=== PATIENT | female | born 1995 | race Caucasian/White ===

== ENCOUNTER 2019-12-02 19:49 | Emergency (ER) | payer OTHER ==
[~2019-12-02 19:49] MED LIST: Iopamidol-370 76% 500 ML 1 ML ONE
[2019-12-02] MEDS ORDERED: Ondansetron PF 4 MG/2 ML Vial ONE (20:51)
[2019-12-02] MEDS ORDERED: Morphine 4 MG/ML VIAL ONE ×2 (20:51→21:49)
[2019-12-02 21:04] LABS: #Basophils 0.1 thou/uL (0.0-0.2); #Eosinphils 0.1 thou/uL (0.0-0.7); #Monocytes 0.9 thou/uL (0.11-0.59); #Neutrophils 5.4 thou/uL (1.40-6.50); %Basophils 0.9 % (0.0-1.0); %Eosinophils 0.6 % (0.0-10.0); %Lymphocytes 38.1 % (21.0-51.0); %Neutrophils 51.5 % (42.0-75.0); Hemoglobin 14.5 g/dL (12.0-16.0); Mean Corpuscular HGB CONC 33.2 g/dL (32.0-36.0); Mean Corpuscular Hemoglobin 30.8 pg (27.0-31.0); Mean Corpuscular Volume 92.7 fL (78.0-98.0); Platelet Count 222 thou/uL (130-400); RBC Distribution Width 12.8 % (11.5-14.5); White Blood Cell (WBC) Count 10.4 thou/uL (4.8-10.8)
[2019-12-02 21:17] LABS: BHCG - Serum Negative (NEGATIVE); Pregs Control Background? CLEAR/WHITE (CLR/WHITE); Pregs Control Bar Appear? YES (CONTROL BAR)
[2019-12-02 21:27] LABS: ALT (SGPT) 8 U/L (8-55); AST (SGOT) 14 U/L (5-34); Albumin 4.8 g/dL (3.5-5.0); Alkaline Phosphatase 25 U/L (40-110); Anion Gap 12 mmol/L (10-20); BUN (Urea Nitrogen) 10 mg/dL (7.0-18.7); Bilirubin, Total 0.7 mg/dL (0.2-1.2); Calc. Creatinine Clearance 0 mL/min (70-130); Calcium 9.4 mg/dL (7.8-10.44); Carbon Dioxide 26 mmol/L (22-29); Chloride 104 mmol/L (98-107); Estimated GFR-MDRD Greater than 90; Globulin 3.1 g/dL (2.4-3.5); Glucose 76 mg/dL (70-105); Lipase 12 U/L (8-78); Potassium 3.5 mmol/L (3.5-5.1); Protein, Total 7.9 g/dL (6.0-8.3); Sodium 138 mmol/L (136-145)
[2019-12-02] MEDS ORDERED: HYDROcodone/Acetaminophen 10/325 mg Tablet ONE (23:24)
--- NOTE | 2019-12-03 07:47 | CT ---
PRELIMINARY REPORT/DIRECT RADIOLOGY/EMERGENCY AFTER HOURS PROCEDURE EXAM: CTA Abdomen with and without Intravenous Contrast. CLINICAL HISTORY: Patient presents complaining of pain in her right shoulder. She said it hurts worse if she eats a deep breath. She thinks is referred pain from her gallbladder. It has been all day tod ay. Getting progressively worse. She works in this hospital. She was going to try to go home and then got much worse so she came back. She feels short of breath just because it hurts to take a deep juan th. She is not had a cough. No chest pain. No fever. No hemoptysis. No vomiting or diarrhea. No dysur ia. She has a Mirena IUD. No personal or family history of DVT or PE. No leg swelling. No recent proc edures. She has a history of a focal nodular hyperdensity in her liver, she had biopsy about a year a go for that. She does not have a GI doctor locally. Her right shoulder does not hurt with range of mo tion. TECHNIQUE: Axial CTA images of the abdomen performed with and without intravenous contrast. Three-dim ensional MIP/volume rendered formations were performed. CONTRAST: With and without; ISOVUE 370,100mL COMPARISON: None provided. FINDINGS: VASCULATURE: Aorta: No acute finding. No abdominal aortic aneurysm. No dissection. Celiac trunk: No acute finding. No occlusion or significant stenosis. Superior mesenteric artery: No acute finding. No occlusion or significant stenosis. Inferior mesenteric artery: No acute finding. No occlusion or significant stenosis. Renal arteries: No acute finding. No occlusion or significant stenosis. Lower thorax: No basilar airspace consolidation. ABDOMEN: Liver: The liver is enlarged measuring 18.9 cm in length. A round enhancing lesion is seen in the ri ght lobe of the liver with a central hypoenhancing nidus measuring 3.4 x 3.4 cm. Round, lobular enha ncing lesion in the right lobe of liver measuring 3.6 x 3.4 cm, series 4 image 20. Gallbladder and bile ducts: No calcified stone. No ductal dilation. Pancreas: Unremarkable. No ductal dilation. Spleen: Unremarkable. Adrenals: No mass. Kidneys and ureters: The kidneys enhance symmetrically. No hydronephrosis. No solid mass. Stomach and bowel: No obstruction. No bowel wall thickening. No CT evidence of acute diverticulitis. Peritoneum: No free fluid. No free air. Lymph nodes: No lymphadenopathy. Abdominal wall and soft tissues: Unremarkable. Bones: No acute osseous abnormality. IMPRESSION: No acute finding. No occlusion or hemodynamically significant stenosis of the arterial sy stem of the abdomen. No AAA. No aortic dissection. The round enhancing lesion in the right lobe of th e liver with a central hypoenhancing nidus is most consistent with focal nodular hyperplasia. The ro und lobular hyperenhancing lesion in the right lobe of the liver may represent focal nodular hyperpla yuli or a hepatic adenoma. Other etiologies are not excluded. Follow-up with MRI is recommended. ELECTRONICALLY SIGNED BY: Richie Meza MD Dec 03, 2019 12:27:12 AM CDT FINAL REPORT No definite acute aortic stenosis, occlusion or aneurysmal formation is seen within the abdomen. The celiac, SMA, and renal arteries appear patent. The ROSALIA is patent. The visualized common iliac ronny blas are patent. As described in the preliminary report are hyperenhancing rounded lesions involving the right hepatic lobe seen on a recent right upper quadrant ultrasound as being slightly hyperechoi c. These would suggest either small hepatic adenomas or hemangiomas. Would recommend consideration for MRI of the abdomen with and without contrast utilizing hemangioma protocol for further characteri zation. There are some reticulonodular opacities within the peripheral aspect of the posterolateral right low er lobe suspicious for a mild bronchiolitis. No free fluid or enlarged lymph nodes are seen within the abdomen. Visualized unopacified large and small bowel are unremarkable-appearing. POS:
--- NOTE | 2019-12-03 10:47 | ULT ---
GALLBLADDER ULTRASOUND: HISTORY: Right upper quadrant pain. FINDINGS: Real-time imaging of the right upper quadrant shows a normal-appearing gallbladder. The common duct is 3 mm. Within the right lobe of the liver are 2 somewhat indistinct hyperechoic lesions, one measuring appro ximately 3.3 cm in size, the other approximately 2.5 x 4.4 cm. In a patient of this age group, these are most likely hemangiomas, but not entirely typical in appearance. Further evaluation with CT usi ng a liver mass protocol would be recommended on a nonemergent basis. Right kidney is not obstructed . Pancreas appears unremarkable. IMPRESSION: Two hyperechoic areas within the right lobe of the liver. Given the patient's age, these are probabl y benign liver lesions, but further characterization with CT using liver mass protocol on a nonemerge ncy basis would be recommended. POS: [facility]
== END 2019-12-03 02:00 | disposition home or self-care (01) ==
LOC: ERS 19:49
DX: M25.511 Pain in right shoulder (principal); K76.89 Other specified diseases of liver
CPT/HCPCS: 74175; 76705; 80053; 83690; 84703; 85025; J2270; J2405; Q9967

== ENCOUNTER 2019-12-03 09:39 | Inpatient (IN) | payer OTHER ==
[2019-12-03 10:13] LABS: #Basophils 0.2 thou/uL (0.0-0.2); #Eosinphils 0.1 thou/uL (0.0-0.7); #Lymphocytes 2.9 thou/uL (1.20-3.40); #Monocytes 0.8 thou/uL (0.11-0.59); #Neutrophils 3.4 thou/uL (1.40-6.50); %Basophils 2.1 % (0.0-1.0); %Eosinophils 1.1 % (0.0-10.0); %Lymphocytes 39.3 % (21.0-51.0); %Monocytes 11.1 % (0.0-10.0); %Neutrophils 46.5 % (42.0-75.0); Hemoglobin 14.4 g/dL (12.0-16.0); Mean Corpuscular HGB CONC 32.7 g/dL (32.0-36.0); Mean Corpuscular Hemoglobin 30.8 pg (27.0-31.0); Mean Corpuscular Volume 94.3 fL (78.0-98.0); Platelet Count 189 thou/uL (130-400); RBC Distribution Width 12.8 % (11.5-14.5); Red Blood Cell (RBC) Count 4.68 mill/uL (4.20-5.40); White Blood Cell (WBC) Count 7.4 thou/uL (4.8-10.8)
[2019-12-03 10:19] LABS: BHCG - Serum Negative (NEGATIVE); Pregs Control Background? CLEAR/WHITE (CLR/WHITE); Pregs Control Bar Appear? YES (CONTROL BAR)
[2019-12-03] MEDS ORDERED: Morphine 4 MG/ML VIAL ONE (10:29)
[2019-12-03 10:32] LABS: ALT (SGPT) 8 U/L (8-55); AST (SGOT) 15 U/L (5-34); Albumin 4.6 g/dL (3.5-5.0); Alkaline Phosphatase 26 U/L (40-110); Anion Gap 11 mmol/L (10-20); BUN (Urea Nitrogen) 8 mg/dL (7.0-18.7); Bilirubin, Total 0.8 mg/dL (0.2-1.2); Calc. Creatinine Clearance 0 mL/min (70-130); Calcium 9.3 mg/dL (7.8-10.44); Carbon Dioxide 26 mmol/L (22-29); Chloride 105 mmol/L (98-107); Estimated GFR-MDRD Greater than 90; Globulin 3.1 g/dL (2.4-3.5); Glucose 78 mg/dL (70-105); Lipase 238 U/L (8-78); Potassium 3.6 mmol/L (3.5-5.1); Protein, Total 7.7 g/dL (6.0-8.3); Sodium 138 mmol/L (136-145)
[2019-12-03] MEDS ORDERED: Acetaminophen 325 MG TAB PO PRN (11:28)
[2019-12-03] MEDS ORDERED: Ondansetron ODT 4 MG TAB PO PRN (11:28)
[2019-12-03] MEDS ORDERED: Calcium Carbonate 500 MG ChewTAB PO PRN (11:28)
[2019-12-03 12:15] LABS: Magnesium 2.1 mg/dL (1.6-2.6); Phosphorus 4.3 mg/dL (2.3-4.7)
[2019-12-03 12:57] VITALS: BMI 20.7
[2019-12-03] MEDS: D5 1/2 NS w/20 mEq KCL 1,000 ML IV SCH ×2 (14:10→22:03)
[2019-12-03] MEDS: Morphine 2 MG/ML SYRINGE SLOW IVP PRN (14:10)
[2019-12-03] MEDS ORDERED: Ketorolac Tromethamine 30 MG/ML VIAL IVP PRN (17:37)
--- NOTE | 2019-12-03 18:52 | HP ---
PRIMARY CARE PHYSICIAN: City Axel. CHIEF COMPLAINT: Abdominal discomfort. HISTORY OF PRESENT ILLNESS: The patient is a 24-year-old female with focal nodular hyperplasia of the liver, presented to the emergency room with above complaints. Over the last 24 hours, the patient developed gradual worsening pain in the right upper quadrant radiating to her right shoulder. The pain is moderate to severe in intensity, worse with deep breathing and movement. She felt nauseous, however, denies any vomiting. No urinary symptoms reported. She was evaluated in the emergency room last night and was discharged home on Tylenol No. 3. The pain got worse this morning, for which she presented to the emergency room. She denies any worsening of the pain with right shoulder movement. The patient denies any other complaints. PAST MEDICAL HISTORY: 1. Von Willebrand disease, type 1. 2. Focal nodular hyperplasia of the liver. 3. Fibromyalgia. PAST SURGICAL HISTORY: 1. Septoplasty. 2. [place] teeth extraction. ALLERGIES: THE PATIENT IS ALLERGIC TO AUGMENTIN AND SULFA. CURRENT HOME MEDICATION: Tylenol No. 3. REVIEW OF SYSTEMS: All other review of systems is reviewed and found negative. SOCIAL HISTORY: The patient currently lives at home alone. Denies any smoking or alcohol. 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 FAMILY HISTORY: Negative for heart disease. PHYSICAL EXAMINATION: VITAL SIGNS: Temperature 98.7, respirations of 20, pulse rate of 82, blood pressure of 130/81, O2 saturation 99% on room air. GENERAL: A 24-year-old female in mild to moderate distress due to above complaints. HEENT: Head, atraumatic and normocephalic. Sclerae are anicteric. Moist mucous membranes. No oral lesion. NECK: Supple. No JVD. No carotid bruit. LUNGS: Clear to auscultation bilaterally. No wheezing, rales, or rhonchi. HEART: S1 and S2 present. Regular rate and rhythm. No rubs or gallops. ABDOMEN: Soft. There is tenderness in the right upper quadrant. No rebound or guarding. No costovertebral angle tenderness. EXTREMITIES: No edema or calf tenderness. NEUROLOGIC: Grossly nonfocal. Moves all 4 extremities. PSYCHIATRY: Alert, awake, oriented x3. SKIN: Warm and dry. LYMPH NODES: No palpable lymph nodes in the neck. LABORATORY FINDINGS: CBC showed WBC 7.4 with hemoglobin 14.4, hematocrit 44.1, platelet 189. Chemistry showed sodium 138, potassium 3.6, chloride of 105, bicarb 26, BUN 8, creatinine 0.76. test was negative. Lipase was 238 from 12 last night. TSH was normal. CT angiogram of the abdomen with and without contrast showed right lower lobe liver lesion consistent with adenomas or hemangiomas. It also showed some reticular nodular opacities within the peripheral aspect of the posterolateral right lower lobe suspicious for mild bronchiolitis. IMPRESSION: 1. Right upper quadrant pain radiating to the shoulder, multifactorial. 2. Elevated lipase with suspected acute pancreatitis. 3. Probable acute bronchiolitis. 4. History of von Willebrand disease, type 1. 5. History of focal nodular hyperplasia. PLAN: The patient will be kept n.p.o. for possible pancreatitis. She has mild nausea. We will start her on IV hydration with PPIs. We will add anti- inflammatory agent with morphine. We will consult Gastroenterology Service. We will recheck labs including lipase in a.m. The patient had a COVID testing recently which has been negative. Her symptoms are not consistent with viral syndrome. Job ID: [id number] [facility]
[2019-12-03] MEDS: Ondansetron PF 4 MG/2 ML Vial IVP PRN (19:05)
[2019-12-03] MEDS: HYDROcodone/Acetaminophen 5/325 mg Tablet PO PRN (19:39)
[2019-12-03] MEDS: Pantoprazole 40 MG VIAL IVP SCH (20:25)
--- NOTE | 2019-12-03 21:43 | CON ---
DATE OF CONSULTATION: 12/03/2019 CHIEF COMPLAINT: Severe right shoulder pain and right posterior flank pain. 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 She reports 3 days ago she noted onset of intermittent stabbing pain involving the right shoulder. There was no hindrance to shoulder movement or range of motion. She denies any trauma or heavy physical exertion. Later that day, she felt pain that radiates from the right lower chest and also in the right flank that radiates up to the right shoulder. She denies any fever or chills. There is no respiratory symptoms such as shortness of breath or coughing. The patient presented to the ER where she underwent an abdominal ultrasound that showed 2 hyperechoic areas in the right lobe of the liver with a normal gallbladder and common duct measured 3 mm. All her labs including liver profile were normal. The patient was discharged home with pain medication. However, the right shoulder pain became more prominent and more persistent. It soon became apparent that every time she takes a deep breath or cough that she would have pain that radiates from the right posterior flank, shooting straight up to her right shoulder. In addition, any twisting of her torso also reproduced the pain from the right posterior flank to the right shoulder. The patient presented back to the ER. CT angiogram performed showed the 2 liver lesions without any other abnormality. The patient denies having any nausea or vomiting. She has no altered bowel function. She denies any fever or chills. She specifically denies having any frontal abdominal pain. The patient has known focal nodular hyperplasia in the liver with extensive evaluation at [facility] 2 years ago. She reportedly had multiple MRIs. She also had an attempted liver biopsy that was inconclusive. She also reports having a family history of gallbladder disease involving her mom and her aunt. PAST MEDICAL HISTORY: 1. Von Willebrand's disease. 2. Focal nodular hyperplasia in the liver. 3. Fibromyalgia. 4. Status post septoplasty. 5. Status post wisdom tooth removal. SOCIAL HISTORY: Patient lives by herself. She infrequently consumes alcohol socially. Denies any tobacco usage or recreational drug use. FAMILY HISTORY: Gallbladder disease, not involving gallstones in her mother. Otherwise negative for any known GI problem, liver disease, or GI malignancy. MEDICATION: Usual medication at home; none. ALLERGIES: INCLUDE AMOXICILLIN/ CLAVULANIC ACID AND SULFA. REVIEW OF SYSTEMS: Ten-point review of systems did not show any reported symptoms other than aforementioned. PHYSICAL EXAMINATION: VITAL SIGNS: Temperature 97.6, blood pressure 92/51, pulse of 76. GENERAL: She is alert, conversant, in no distress. HEENT: Shows anicteric sclerae. Oropharynx is clear and moist. NECK: Supple. No adenopathy. CV: Exam shows normal S1, S2. Regular rate and rhythm. CHEST: Shows breath sounds. There is no chest wall tenderness. Right shoulder rotation is normal without any restriction of pain. ABDOMEN: Soft, flat, nontender. No distention. No tympany. No palpable mass or organomegaly. There is some vague reproduction of pain with deep palpation in the right costal margin. There is no flank tenderness. SKIN: Does not show any visible rash. EXTREMITIES: Exam shows no edema. LABORATORY DATA: WBC 7.4, hemoglobin 14.4, and platelet count of 189. Next lytes within normal range. Creatinine 0.76, bilirubin 0.8, AST 15, ALT of 8, and alkaline phos is 26, lipase 238 (12 yesterday). IMAGING: Abdominal ultrasound performed yesterday showed 2 hyperechoic areas within the right lobe of liver consistent with her known FNH. Gallbladder appeared normal without any mural thickening or pericholecystic fluid. Common duct is 3 mm. There is no cholelithiasis. CT angiogram. I personally reviewed the CT with the radiologist. Their suggestion is bronchiolitis in the right lower lobe with possible mild effusion. There is no discrete lesion or mass within the lung cavity. Diaphragm is normal without any abscess. Liver is consistent with 2 lesions from known FNH in the right liver. These lesions are not abutting the liver capsule. No evidence of hemorrhage. Right kidney appears normal. Biliary tree appeared normal. Gallbladder appeared normal and the vascular structures including SMA and celiac arteries are normal. ASSESSMENT: 1. Right posterior flank pain, mostly in the back rather than frontal pain with radiation to the right shoulder. Onset is often precipitated by deep breathing or coughing or twisting of the torso. Etiology is not known at this point. There is no objective evidence of any gallbladder disease at the present time or any disease process that elevates her diaphragm. Possibilities at the present time include pleuritis or pleurisy, especially CT finding of peripheral bronchiolitis in the periphery in the right lower lungs versus acalculous gallbladder disease. The patient has no respiratory symptoms, fever or chills. RECOMMENDATION: 1. Agreed with HIDA scan with gallbladder stimulation test as ordered. 2. No indication for GI endoscopy at the present time. 3. If HIDA scan is unremarkable, a repeat CT through the lower thorax and upper abdomen may be warranted to assess for any interval change. 4. We will follow. Job ID: [id number]
[2019-12-04 04:31] LABS: #Basophils 0.1 thou/uL (0.0-0.2); #Eosinphils 0.1 thou/uL (0.0-0.7); #Lymphocytes 2.6 thou/uL (1.20-3.40); #Monocytes 0.7 thou/uL (0.11-0.59); #Neutrophils 2.9 thou/uL (1.40-6.50); %Basophils 0.8 % (0.0-1.0); %Lymphocytes 41.3 % (21.0-51.0); %Monocytes 11.7 % (0.0-10.0); %Neutrophils 45.2 % (42.0-75.0); Hemoglobin 13.1 g/dL (12.0-16.0); Mean Corpuscular HGB CONC 33.5 g/dL (32.0-36.0); Mean Corpuscular Hemoglobin 31.4 pg (27.0-31.0); Mean Platelet Volume 10.2 fL (7.4-10.4); Platelet Count 183 thou/uL (130-400); RBC Distribution Width 12.7 % (11.5-14.5); Red Blood Cell (RBC) Count 4.16 mill/uL (4.20-5.40); White Blood Cell (WBC) Count 6.3 thou/uL (4.8-10.8)
[2019-12-04 04:56] LABS: ALT (SGPT) Less than 7 U/L (8-55); AST (SGOT) 11 U/L (5-34); Albumin 3.7 g/dL (3.5-5.0); Alkaline Phosphatase 21 U/L (40-110); Anion Gap 9 mmol/L (10-20); BUN (Urea Nitrogen) 5 mg/dL (7.0-18.7); Bilirubin, Total 0.8 mg/dL (0.2-1.2); Calc. Creatinine Clearance 112 mL/min (70-130); Calcium 8.7 mg/dL (7.8-10.44); Carbon Dioxide 25 mmol/L (22-29); Chloride 107 mmol/L (98-107); Estimated GFR-MDRD Greater than 90; Globulin 2.6 g/dL (2.4-3.5); Glucose 100 mg/dL (70-105); Lipase 13 U/L (8-78); Protein, Total 6.3 g/dL (6.0-8.3); Sodium 137 mmol/L (136-145)
[2019-12-04] MEDS: Morphine 2 MG/ML SYRINGE SLOW IVP PRN (06:11)
[2019-12-04] MEDS: D5 1/2 NS w/20 mEq KCL 1,000 ML IV SCH ×3 (06:14→19:57)
[2019-12-04] MEDS: HYDROcodone/Acetaminophen 5/325 mg Tablet PO PRN ×3 (07:29→19:58)
[2019-12-04] MEDS: Pantoprazole 40 MG VIAL IVP SCH ×2 (07:33→19:58)
--- NOTE | 2019-12-04 08:46 | PDOC.HOSPP ---
- Subjective Encounter Date: 12/04/19 Encounter Time: 15:30 Subjective: Patient seen and examined for RUQ pain. No improvement in RUQ pain. No new complaints. No overnight events - Objective Vital Signs & Weight: Vital Signs (12 hours) Temp Pulse Resp BP BP Pulse Ox 12/04/19 07:19 98.0 F 71 16 104/55 L 100 12/04/19 05:06 99 12/04/19 04:10 98.4 F 70 16 96/51 L 100 12/03/19 23:57 98.6 F 60 16 96/51 L 99 Weight Weight 136 lb 6.4 oz I&O: 12/03/19 12/04/19 12/05/19 06:59 06:59 06:59 Intake Total 1105 1493 Balance 1105 1493 Result Diagrams: 12/04/19 04:20 12/04/19 04:20 Additional Labs: Laboratory Tests 12/03/19 12/04/19 12/04/19 10:02 04:20 04:20 Lipase 238 H 13 Procalcitonin 0.02 Hospitalist ROS - Review of Systems Constitutional: denies: fever, chills, sweats, weakness, malaise, other Respiratory: denies: cough, dry, shortness of breath, hemoptysis, SOB with excertion, pleuritic pain, sputum, wheezing, other Cardiovascular: denies: chest pain, palpitations, orthopnea, paroxysmal noc. dyspnea, edema, light headedness, other - Medication Medications: Active Medications Generic Name Dose Route Start Last Admin Trade Name Freq PRN Reason Stop Dose Admin Hydrocodone Bitart/Acetaminophen 1 tab 12/03/19 17:37 12/04/19 07:29 Spencer 5/325 PO 1 tab Q4H PRN Administration Moderate Pain (4-6) Potassium Chloride/Dextrose/Sod Cl 1,000 mls @ 125 mls/hr 12/03/19 11:30 06:14 D5 1/2 Ns W/20 Meq Kcl IV 1,000 mls .Q8H [place] Administration Ketorolac Tromethamine 15 mg 12/03/19 17:37 12/03/19 19:03 Toradol IVP 12/08/19 17:38 15 mg Q6H PRN Administration Pain Morphine Sulfate 2 mg 12/03/19 13:26 12/04/19 06:11 Morphine SLOW IVP 12/06/19 13:27 2 mg Q4H PRN Administration Pain Ondansetron HCl 4 mg 12/03/19 11:28 12/03/19 19:05 Zofran IVP 4 mg Q6H PRN Administration Nausea/Vomiting Pantoprazole Sodium 40 mg 12/03/19 21:00 12/04/19 07:33 Protonix IVP 40 mg Q12HR [place] Administration Sodium Chloride 10 ml 12/03/19 11:28 12/04/19 06:15 Flush - Normal Saline IVF 10 ml PRN PRN Administration Saline Flush - Exam General Appearance: NAD Heart: RRR, no gallops Respiratory: no wheezes, no ronchi Gastrointestinal: soft, non-distended, normal bowel sounds Gastrointestinal - other findings: RUQ tenderness Extremities: no cyanosis, no clubbing Neurological: no new deficit Psychiatric: normal affect, A&O x 3 Hosp A/P - Plan DVT proph w/SCDs 1. Right upper quadrant pain radiating to the shoulder, multifactorial. 2. Elevated lipase with suspected acute pancreatitis. 3. Probable acute bronchiolitis. 4. History of von Willebrand disease, type 1. 5. History of focal nodular hyperplasia. PLAN: LFTs/Lipase improving HIDA scan negative Reduce IVF GI following Cont PPI Pain control SCDs for DVT prophylaxis
--- NOTE | 2019-12-04 14:30 | NM ---
HEPATOBILIARY SCAN: HISTORY:Abdominal pain. No gallstones on ultrasound of 12/02/2019 RADIOPHARMACEUTICAL: 5.5 mCi Technetium 99m Mebrofenin injected intravenously FINDINGS: There is normal tracer extraction by the liver with normal excretion into the biliary tracts and smal l bowel loops and normal filling of the gallbladder. The calculated gallbladder ejection fraction following an oral fatty meal measures 71%. IMPRESSION:Normal exam.
[2019-12-04] MEDS ORDERED: Iopamidol-370 76% 500 ML 1 ML ONE (15:56)
[2019-12-04 16:37] LABS: PTT 33.5 sec (22.9-36.1); Prothrombin Time 13.4 sec (12.0-14.7)
--- NOTE | 2019-12-04 17:28 | PRG ---
DATE OF SERVICE: 12/04/2019 SUBJECTIVE: Ms. Harris still has pain vague on her right upper quadrant, bad in the right shoulder when trying to take a deep breath. She actually has a catch and cannot deep breathe secondary to very sharp pain like a nail going to her right shoulder. She has had no fever or chills. She had a HIDA scan today with the EF of 71% with maybe a little bit of discomfort, but no reproduction of the severe pain. Presently, she is resting comfortably. She denies any nausea or vomiting. She reports that she had a history of fibromyalgia diagnosed at [facility] last year. There she had a CAT scan, EGD, and saw a tin plater with no rheumatologic disease found. She has no cough or shortness of breath. Her CT angio here on review did show some bronchiolitis in the right lower lung. There has been no full chest x-ray or CT of the chest. PHYSICAL EXAMINATION: VITAL SIGNS: Temperature is 98, pulse 71, blood pressure 104/55. LUNGS: Clear, although she cannot take a very deep breath and punches in the right side with severe shoulder pain if she tries to take a deep breath. HEART: Regular rhythm. ABDOMEN: Soft and nontender. There is no rebound. There is no guarding. Bowel sounds are positive. EXTREMITIES: No clubbing, cyanosis, or edema. LABORATORY DATA: White count 6.3, hemoglobin 13, platelet count 183. Electrolytes normal. Liver function tests normal. TSH normal. test negative. Procalcitonin normal. Lipase was 238 on the . It is normal [address] scan was reviewed from admission with Dr. Vargas yesterday with Radiology. ASSESSMENT: Pleuritic like pain with some hiccuping. She has had an upper endoscopy last year. She has a rheumatological evaluation last year at [facility]. RECOMMENDATIONS: I would get a CT of her chest and abdomen and check inflammatory markers. We will ask General Surgery to evaluate even though her HIDA scan was normal. In case her symptoms seem to be worsening over time, this would be unusual for to have a sick gallbladder in the setting as she has no inflammatory markers, elevation of white count or platelet count. No fever. No tachycardia. Gallbladder appeared normal on her CT. I would think that if she is having this much pain referred to her right shoulder from diaphragmatic irritation, it would be something else present and also it would be another possibility if she denies use of NSAIDs. PLAN: CT chest and abdomen today. EGD tomorrow. If negative, surgical consultation may be reasonable to have Pulmonary evaluate this patient as well. Of note, she has no pain with moving her right shoulder. She has a little bit of pain with twisting and moving, but most of the pain is elicited by deep breath. Job ID: [id number]
--- NOTE | 2019-12-04 20:05 | CT ---
CT CHEST WITH IV CONTRAST CT ABDOMEN WITH AND WITHOUT IV CONTRAST (TRIPLE PHASE): 12/04/19 HISTORY: Severe right shoulder pain with hiccups and right upper quadrant pain. COMPARISON: CTA abdomen and CT abdomen with and without contrast from previous day. FINDINGS: No mediastinal, hilar, or axillary mass, or lymphadenopathy seen. No pericardial or left pleural effu sions noted. A small right pleural effusion has developed with adjacent atelectatic change. No pneumo thoraces are seen. No lung masses are identified. The masses in the right lobe of the liver are again seen and these masses are hyperenhancing on the a rterial phase measuring about 3.5 cm superior in the superior mass and about 3.4 cm inferiorly. The inferior mass has a central hypoattenuating scar on the arterial phase. The portal venous phase demon strates isoattenuation of these masses. The noncontrasted images demonstrate no evidence of hemorrhag e or calcification. The spleen, pancreas, adrenal glands and kidneys are normal. No free air, free f luid or lymphadenopathy seen in the abdomen. No acute osseous abnormalities are seen. No osteolytic or osteoblastic lesions are identified. IMPRESSION: 1. Small right pleural effusion with adjacent atelectatic change. 2. Masses in the right lobe of the liver are most likely due to FNH. An MRI with Eovist would be helpful. If not, a follow-up CT scan should be obtained in three months. POS: [facility]
--- NOTE | 2019-12-04 20:43 | CON ---
DATE OF CONSULTATION: 12/04/2019 REASON FOR CONSULTATION: Pleuritic pain in the right side of the chest and intersection with the abdomen radiating towards the right shoulder. HISTORY OF PRESENT ILLNESS: A 24-year-old, who has a history of Von Willebrand disease, which was diagnosed when she was in her teenage years and presented with metromenorrhagia. She has been treated with oral contraceptives, eventually developed hepatic focal nodular hyperplasia, which led to discontinuation of the oral contraceptives and she is using a different modality to decrease the menstrual flow now. 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 Initially, the concern was with her gallbladder, but workup did not reveal any gallbladder inflammatory process or biliary issues. Right now, she is still for the most part appears comfortable at rest, but when she tries to take a deep breath she has this pain, which hits her in the lower anterolateral chest and then radiates to the right shoulder. It is quite intense, but only when she takes a deep breath. She does not have any headaches. No visual symptoms, sore throat, odynophagia, or dysphagia. No cough. No dyspnea. No abdominal pain. No genitourinary symptoms. No bleeding. No diarrhea. No joint symptoms. PAST MEDICAL HISTORY: Von Willebrand disease with metromenorrhagia, managed with initially oral contraceptives. Subsequently, she developed focal nodular hyperplasia in the liver, which was biopsy-proven, that led to discontinuation of oral contraceptives. She has also history of fibromyalgia. She has wisdom teeth removal and septoplasty. SOCIAL HISTORY: She is a nurse. Drinks rarely. Family lives in [place]. She lives by herself with the above. ALLERGIES: AUGMENTIN AND SULFA DRUGS. MEDICATIONS: p.r.n. for cough. FAMILY HISTORY: Von Willebrand disease. PHYSICAL EXAMINATION: VITAL SIGNS: Temperature is normal, blood pressure 111/73, pulse 61, respirations 16, and O2 saturation 98. GENERAL: She appears in no Distress. Only when she takes a deep breath, I think it become symptomatic. There is no lymphadenopathy. HEENT: Not remarkable except for acne. NECK: Supple. LUNGS: With no obvious crackles or wheezing. She has difficulty in taking deep breaths because of the induced pain. HEART: S1 and S2. Regular rate. No S3 or S4. ABDOMEN: Soft, not distended or tender. No ascites. No bladder distention. No joint inflammatory activity. EXTREMITIES: Moves extremities equally. NEUROLOGIC: Nonfocal. LABORATORY DATA: White cell count 7.4 and 6.3, hemoglobin 13, platelets 183, and monocytes 11.7. INR 1.0. Creatinine 0.76. Liver profile normal. The lipase was 233, but then on repeat was 13. TSH normal. Procalcitonin 0.02. CRP was 2.26. The patient had a CT of abdomen CTA, which was done on 12/01 two days ago which showed no definite vascular abnormality around enhancing lesion. The right lobe of liver with a central focal nodular hyperplasia. Some reticulonodular opacities in peripheral aspect posterior lateral right lower lobe. No enlarged lymph nodes noted. A CT of chest was done and this shows a pleural fluid appears to be some areas of loculation, this could be a hemorrhagic pleural fluid. ASSESSMENT: Von Willebrand disease, focal nodular hyperplasia and in pleuritic pain with referring to the right shoulder with abnormalities noted on the CT scan. DISCUSSION: Differential diagnosis includes spontaneous hemorrhagic pleural fluid from associated with Von Willebrand disease as the more likely scenario is probably causing the referred pain in the right shoulder, so I do not think this is secondary to an infectious process, but probably related to her Von Willebrand disease. We will wait for the final interpretation of the radiologist. Gallbladder disease has been effectively ruled out. Viral pleurodynia is less likely due to absence of other symptoms or fever. Thromboembolism also appears less likely but not yet ruled out. Job ID: [id number] [facility]
[2019-12-05] MEDS: HYDROcodone/Acetaminophen 5/325 mg Tablet PO PRN ×5 (00:07→20:50)
[2019-12-05 04:04] LABS: Hemoglobin 13.6 g/dL (12.0-16.0); Lymphocytes 35 % (21-51); MDiff Complete? YES; Mean Corpuscular HGB CONC 33.1 g/dL (32.0-36.0); Mean Corpuscular Volume 93.5 fL (78.0-98.0); Mean Platelet Volume 10.1 fL (7.4-10.4); Monocytes 13 % (0-10); Neutrophil 52 % (42-75); Platelet Count 200 thou/uL (130-400); Platelet Morphology Comment Appears Adequate; RBC Distribution Width 12.8 % (11.5-14.5); Red Blood Cell (RBC) Count 4.38 mill/uL (4.20-5.40); White Blood Cell (WBC) Count 7.4 thou/uL (4.8-10.8)
[2019-12-05 04:21] LABS: ALT (SGPT) Less than 7 U/L (8-55); AST (SGOT) 12 U/L (5-34); Alkaline Phosphatase 22 U/L (40-110); Anion Gap 12 mmol/L (10-20); BUN (Urea Nitrogen) 6 mg/dL (7.0-18.7); Bilirubin, Total 0.6 mg/dL (0.2-1.2); Calc. Creatinine Clearance 110 mL/min (70-130); Carbon Dioxide 24 mmol/L (22-29); Chloride 105 mmol/L (98-107); Estimated GFR-MDRD Greater than 90; Globulin 2.8 g/dL (2.4-3.5); Glucose 90 mg/dL (70-105); Potassium 4.3 mmol/L (3.5-5.1); Protein, Total 6.8 g/dL (6.0-8.3); Sodium 137 mmol/L (136-145)
[2019-12-05] MEDS: Morphine 2 MG/ML SYRINGE SLOW IVP PRN ×3 (05:39→14:11)
[2019-12-05] MEDS ORDERED: Morphine 2 MG/ML SYRINGE SLOW IVP SCH (06:00)
[2019-12-05] MEDS: Ondansetron PF 4 MG/2 ML Vial IVP PRN (07:32)
[2019-12-05] MEDS: Pantoprazole 40 MG VIAL IVP SCH ×2 (07:32→20:35)
--- NOTE | 2019-12-05 07:53 | RAD ---
EXAM: Chest 2 views: HISTORY: Shortness of breath COMPARISON: 04/18/2014 FINDINGS: There is a normal-sized cardiomediastinal silhouette. There is no evidence of consolidation, mass, or pleural effusion. There is mild scoliotic curvature of the spine. IMPRESSION: No evidence of acute cardiopulmonary disease
--- NOTE | 2019-12-05 08:37 | PDOC.HOSPP ---
- Objective Vital Signs & Weight: Vital Signs (12 hours) Temp Pulse Resp BP Pulse Ox 12/05/19 08:00 97.8 F 75 15 100/59 L 100 12/05/19 00:20 100 Weight Weight 136 lb 6.4 oz I&O: 12/04/19 12/05/19 12/06/19 06:59 06:59 06:59 Intake Total 1105 3803 Balance 1105 3803 Result Diagrams: 12/05/19 03:39 12/05/19 03:38 Additional Labs: Laboratory Tests 12/03/19 12/04/19 12/04/19 10:02 04:20 16:23 C-Reactive Protein 2.26 H Procalcitonin 0.02 TSH 3rd Generation 2.3602 Radiology Reviewed by me: Yes (CXR - no new findings) Hospitalist ROS - Medication Medications: Active Medications Generic Name Dose Route Start Last Admin Trade Name Freq PRN Reason Stop Dose Admin Hydrocodone Bitart/Acetaminophen 1 tab 12/03/19 17:37 12/05/19 08:01 [place] 5/325 PO 1 tab Q4H PRN Administration Moderate Pain (4-6) Potassium Chloride/Dextrose/Sod Cl 1,000 mls @ 50 mls/hr 12/04/19 15:53 12/03 19:57 D5 1/2 Ns W/20 Meq Kcl IV 1,000 mls .Q20H [place] Administration Morphine Sulfate 2 mg 12/03/19 13:26 12/05/19 05:39 Morphine SLOW IVP 12/06/19 13:27 2 mg Q4H PRN Administration Pain Ondansetron HCl 4 mg 12/03/19 11:28 12/05/19 07:32 Zofran IVP 4 mg Q6H PRN Administration Nausea/Vomiting Pantoprazole Sodium 40 mg 12/03/19 21:00 12/05/19 07:32 Protonix IVP 40 mg Q12HR [place] Administration Sodium Chloride 10 ml 12/03/19 11:28 12/04/19 06:15 Flush - Normal Saline IVF 10 ml PRN PRN Administration Saline Flush Hosp A/P - Plan RUQ/Rt shoulder pain with small Rt Pleural effusion ?etio -HIDA negative -CT chest/abd - small Rt Pleural effusion Abn Lipase on admission von Willebrand disease, type 1. Focal nodular hyperplasia. PLAN: Cont IVF GI following Cont PPI Pain control Case d/w Dr Billings - Hematology - No new recs. SCDs for DVT prophylaxis
--- NOTE | 2019-12-05 11:58 | PRG ---
DATE OF SERVICE: 12/05/2019 SUBJECTIVE: Ms. Harris complains of pain in the right upper quadrant and right lower chest with any inspiration or movement. The pain is temporarily controlled with morphine. She has had no nausea, vomiting, diarrhea, constipation or blood in the stool. OBJECTIVE: VITAL SIGNS: Temperature 97.8, pulse 75, blood pressure 100/59. GENERAL: She is in no acute distress. Alert and oriented x3. HEENT: Eyes have no scleral icterus. Oropharynx is clear without lesions. LUNGS: Clear to auscultation bilaterally. HEART: Regular rate and rhythm without murmur. ABDOMEN: Soft, tender in the right upper quadrant with inspiration, but otherwise her abdomen is nontender. Bowel sounds are present. EXTREMITIES: No lower extremity edema. LABORATORY DATA: White blood cell count 7.4, hemoglobin 13.6, platelets 200. INR 1.0. Bilirubin 0.6, AST 12, ALT 7, alkaline phosphatase 22. Albumin 4.0. Creatinine 0.78. IMPRESSION: 1. Pleuritic right-sided pain. CT scan of the chest on 12/04/2019 shows a pleural effusion which is small below the right lung base. This was not seen on the CT the day before. Chest x-ray today does not show significant increase in the effusion. Given her history of von Willebrand's, consideration for hemorrhagic effusion is given. However, the Hounsfield units indicate that the density of the fluid on the CT is less than what would be expected with a hemorrhagic effusion. No obvious GI source for the effusion is seen. She has no evidence of acute pancreatitis. She did have a sparsely elevated pancreatic enzyme, but on the two days on either side of that, her lipase was 13. She had no changes of pancreatitis on CT. No evidence of biliary obstruction or cholecystitis. 2. She does have history of FNH and the imaging studies are consistent with that with the liver lesions noted. Again, I think these would be likely unrelated to the pleural effusion. 3. Her white blood cell count and oxygen saturations remain normal. No significant respiratory symptoms otherwise. However, she is taking very shallow breaths now. RECOMMENDATIONS: 1. She is encouraged to take deep breaths and ambulate to avoid atelectasis. 2. COVID nasal swab PCR is pending. 3. It does not appear that this pleural effusion and pleuritic pain are directly GI related. I will be available as needed. Please call if GI can help. Job ID: [id number]
[2019-12-05] MEDS: D5 1/2 NS w/20 mEq KCL 1,000 ML IV SCH ×2 (12:21→16:14)
--- NOTE | 2019-12-05 13:14 | CT ---
CT CHEST WITH IV CONTRAST CT ABDOMEN WITH AND WITHOUT IV CONTRAST (TRIPLE PHASE): 12/04/19 HISTORY: Severe right shoulder pain with hiccups and right upper quadrant pain. COMPARISON: CTA abdomen and CT abdomen with and without contrast from previous day. FINDINGS: No mediastinal, hilar, or axillary mass, or lymphadenopathy seen. No pericardial or left pleural effu sions noted. A small right pleural effusion has developed with adjacent atelectatic change. No pneumo thoraces are seen. No lung masses are identified. The masses in the right lobe of the liver are again seen and these masses are hyperenhancing on the a rterial phase measuring about 3.5 cm superior in the superior mass and about 3.4 cm inferiorly. The inferior mass has a central hypoattenuating scar on the arterial phase. The portal venous phase demon strates isoattenuation of these masses. The noncontrasted images demonstrate no evidence of hemorrhag e or calcification. The spleen, pancreas, adrenal glands and kidneys are normal. No free air, free f luid or lymphadenopathy seen in the abdomen. No acute osseous abnormalities are seen. No osteolytic or osteoblastic lesions are identified. IMPRESSION: 1. Small right pleural effusion with adjacent atelectatic change. 2. Masses in the right lobe of the liver are most likely due to FNH. An MRI with Eovist would be help ful. If not, a follow-up CT scan should be obtained in three months.
[2019-12-05] MEDS ORDERED: Milk Of Magnesia 30 ML UDCUP PO PRN (13:19)
[2019-12-05] MEDS ORDERED: Polyethylene Glycol 3350 17 GM Packet PO PRN (13:19)
[2019-12-05] MEDS ORDERED: Senokot 8.6 MG TAB PO PRN (13:19)
[2019-12-05] MEDS ORDERED: Docusate 100 MG CAP PO SCH (13:30)
--- NOTE | 2019-12-05 14:21 | PRG ---
DATE OF SERVICE: 12/04/2019 ADDENDUM: Of note, she does have known FNH in the right liver. Reviewing the films, the scar is in the right lobe, the largest one. There are some changes in the liver out to the margin of the right posterior lobe. One wonders if there is some diaphragmatic irritation with this. We will re-image the liver as well. Job ID: [id number]
[2019-12-05 17:53] LABS: ANA Symphony (Qualitative) Negative (Negative); ANA Symphony (Quantitative) 0.2 Ratio (< 0.7 Negative); dsDNA IgG Antibody 0.9 IU/mL (<10 Negative)
[2019-12-05] MEDS: Docusate 100 MG CAP PO SCH (20:35)
[2019-12-06] MEDS: HYDROcodone/Acetaminophen 5/325 mg Tablet PO PRN ×4 (03:48→20:32)
--- NOTE | 2019-12-06 08:56 | PDOC.HOSPP ---
- Subjective Encounter Date: 12/06/19 Encounter Time: 14:00 Subjective: Patient seen and examined for RUQ pain - Pain more worse today. IV pain meds not lasting long. No N/V/D. - Objective Vital Signs & Weight: Vital Signs (12 hours) Temp Pulse Resp BP Pulse Ox 12/06/19 08:21 100 12/06/19 04:00 97.8 F 66 18 102/65 100 12/06/19 02:32 99 Weight Weight 136 lb 6.4 oz I&O: 12/05/19 12/06/19 12/07/19 06:59 06:59 06:59 Intake Total 3803 Balance 3803 Result Diagrams: 12/05/19 03:39 12/05/19 03:38 EKG Reviewed by me: Yes (Tele SR) Hospitalist ROS - Review of Systems Respiratory: denies: cough, dry, shortness of breath, hemoptysis, SOB with excertion, pleuritic pain, sputum, wheezing, other Gastrointestinal: denies: nausea, vomiting, abdominal pain, diarrhea, constipation, melena, hematochezia, other - Medication Medications: Active Medications Generic Name Dose Route Start Last Admin Trade Name Freq PRN Reason Stop Dose Admin Hydrocodone Bitart/Acetaminophen 1 tab 12/03/19 17:37 12/06/19 03:48 [place] 5/325 PO 1 tab Q4H PRN Administration Moderate Pain (4-6) Docusate Sodium 100 mg 12/05/19 21:00 12/05/19 20:35 Colace PO 100 mg BID [place] Administration Potassium Chloride/Dextrose/Sod Cl 1,000 mls @ 50 mls/hr 12/04/19 15:53 12/04 16:14 D5 1/2 Ns W/20 Meq Kcl IV 1,000 mls .Q20H [place] Administration Morphine Sulfate 2 mg 12/03/19 13:26 12/05/19 14:11 Morphine SLOW IVP 12/06/19 13:27 2 mg Q4H PRN Administration Pain Ondansetron HCl 4 mg 12/03/19 11:28 12/05/19 07:32 Zofran IVP 4 mg Q6H PRN Administration Nausea/Vomiting Pantoprazole Sodium 40 mg 12/03/19 21:00 12/05/19 20:35 Protonix IVP 40 mg Q12HR [place] Administration Sodium Chloride 10 ml 12/03/19 11:28 12/04/19 06:15 Flush - Normal Saline IVF 10 ml PRN PRN Administration Saline Flush - Exam General Appearance: ill appearing Neck: supple, no JVD Heart: RRR, no gallops Respiratory: no wheezes, no rales, rhonchi (few at Rt base) Gastrointestinal: soft, non-tender, non-distended, normal bowel sounds Extremities: no cyanosis, no clubbing Neurological: no new deficit Hosp A/P - Plan DVT proph w/SCDs RUQ/Rt shoulder pain with small Rt Pleural effusion ?etio -Pain worsening -HIDA negative - GI signed off -CT chest/abd - small Rt Pleural effusion Abn Lipase on admission -improving von Willebrand disease, type 1. Focal nodular hyperplasia. PLAN: COVID PCR negative Cont PPI with IVF Pain control with IV opioids Consult Pulmonary Cont IS SCDs for DVT prophylaxis
[2019-12-06] MEDS: Pantoprazole 40 MG VIAL IVP SCH ×2 (10:01→21:33)
[2019-12-06] MEDS: Docusate 100 MG CAP PO SCH ×2 (10:01→21:33)
[2019-12-06] MEDS: D5 1/2 NS w/20 mEq KCL 1,000 ML IV SCH (10:19)
[2019-12-06 12:12] LABS: SARS-CoV-2 MS2 Positive; SARS-CoV-2 N Gene Negative; SARS-CoV-2 S Gene Negative; SARS-CoV-2 orf1ab Negative
[2019-12-06] MEDS: Morphine 2 MG/ML SYRINGE SLOW IVP PRN (12:27)
[2019-12-06] MEDS: Ondansetron PF 4 MG/2 ML Vial IVP PRN (12:43)
[2019-12-06] MEDS ORDERED: predniSONE 20 MG TAB PO SCH (15:00)
--- NOTE | 2019-12-06 20:28 | CON ---
DATE OF CONSULTATION: HISTORY OF PRESENT ILLNESS: Liang Harris is a 24-year-old female with history of von Willebrand disease and a liver biopsy associated focal nodular hyperplasia of the liver. She comes to the hospital now with a week history of shoulder pain and vague abdominal pain. She was seen by GI where they did a HIDA scan and CT abdomen showed initially negative. Repeat CT showed a very small pleural effusion and x-ray was normal. She is nonsmoker. Previous history of pneumonia, but no history of TB or asthma. Pain is worse with deep breathing and coughing, but no associated fever or chills. PAST MEDICAL HISTORY: Pertinent mainly for one rheumatoid factor. She has not received replacement therapy for a long period of time, did get DDAVP, doing the liver biopsy. Additionally, she has history of fibromyalgia and focal nodular hyperplasia of liver, which are being followed. PAST SURGICAL HISTORY: Liver biopsy, septoplasty, wisdom teeth. ALLERGIES: PENICILLIN, SULFUR. HOME MEDICATION: Tylenol No. 3. SOCIAL HISTORY: Unremarkable. Alcohol and tobacco abuse. FAMILY HISTORY: Unremarkable. PHYSICAL EXAMINATION: VITAL SIGNS: Temperature 98, pulse 76, respirations 18, saturations 90% on room air, blood pressure 104/81. CHEST: No obvious rubs or crackles. CARDIAC: Normal S1 and S2. No gallops. ABDOMEN: No masses. Coronavirus test negative. LABORATORY DATA: White count 7000, H and H of 13 and 41. Lytes are normal. Renal function normal. ASSESSMENT: Right-sided pleuritic chest pain, possibly viral pleurisy, von Willebrand disease, nodular liver. Brief course of prednisone and steroids have been initiated today. Symptomatic pain relief. When the BUN is improved, she may be discharged home to her primary care physician. If the effusion become substantially larger obviously, we will consider a thoracentesis. Consultation note, 70 minutes, 50% direct patient care. Job ID: [id number]
[2019-12-06] MEDS: Doxycycline 100 MG CAP PO SCH (21:32)
[2019-12-06] MEDS: predniSONE 20 MG TAB PO SCH (21:33)
[2019-12-07] MEDS: HYDROcodone/Acetaminophen 5/325 mg Tablet PO PRN ×2 (00:28→08:27)
[2019-12-07] MEDS: D5 1/2 NS w/20 mEq KCL 1,000 ML IV SCH (04:45)
[2019-12-07 07:37] VITALS: BP 104/57; TEMP 97.7
[2019-12-07] MEDS: Docusate 100 MG CAP PO SCH (08:27)
[2019-12-07] MEDS: Pantoprazole 40 MG VIAL IVP SCH (08:28)
[2019-12-07] MEDS: predniSONE 20 MG TAB PO SCH (08:28)
[2019-12-07] MEDS: Doxycycline 100 MG CAP PO SCH (08:44)
--- NOTE | 2019-12-07 16:20 | DIS ---
DATE OF ADMISSION: 12/03/2019 DATE OF DISCHARGE: 12/07/2019 DISCHARGE DISPOSITION: Home. FOLLOWUP: 1. Follow up with primary care physician in 1 week. 2. Follow up with Dr. Fitzgerald as scheduled. DISCHARGE MEDICATIONS: 1. Prednisone 20 mg daily for next 6 days. 2. Doxycycline 100 mg twice a day. The patient was seen on the day of discharge. Denies any new complaints. No chest pain, shortness of breath, or palpitations reported. Pleuritic chest pain has significantly improved. BRIEF HOSPITAL COURSE: The patient is a 24-year-old female with focal nodular hyperplasia of the liver and von Willebrand disease type 1, presented to the hospital with abdominal discomfort. The pain was mainly localized in the right upper quadrant radiating to her right shoulder. She also felt nauseous without any vomiting. Please refer to the history and physical for further details. The patient was admitted to the hospital with the above diagnosis. The patient was evaluated by Gastroenterology initially for possible biliary colic. HIDA scan was negative. CT scan of the chest and abdomen was obtained. Chest CT showed small right-sided pleural effusion with adjacent atelectatic changes. The abdomen CT showed stable focal nodular hyperplasia. She was evaluated by Infectious Disease as well. Per GI recommendation, COVID testing was sent and came back negative. Due to pleural effusion and pleuritic chest pain, she was then evaluated by Pulmonary, Dr. Fitzgerald, who started her on doxycycline along with prednisone. Pain has completely resolved. She is able to use incentive spirometry up to 3000 mL. She will complete 1 week course of the above antibiotic and steroid per Pulmonary recommendation. FINAL DIAGNOSES: 1. Right upper quadrant/right shoulder pain with small right-sided pleural effusion, probably viral pleurisy, improving. 2. Abnormal lipase of 238 on admission, resolved. The CT scan was negative for pancreatitis. 3. Von Willebrand disease, type 1. 4. Focal nodular hyperplasia. 5. Acute pain secondary to right upper quadrant/right shoulder pain with small right-sided pleural effusion. 6. Fibromyalgia. The patient understands the above plan of care. Job ID: [id number]
== END 2019-12-07 14:15 | disposition home or self-care (01) | DRG 866 ==
LOC: ERS 09:39 → EEVIPCON 09:39 → ONC 11:15 → 2SW 12-05 13:47 → ONC 12-06 17:25
PROVIDERS: ADMIT Internal Medicine; ATTEND Internal Medicine
DX: B33.8 Other specified viral diseases (principal); D68.0 Von Willebrand disease; J90 Pleural effusion, not elsewhere classified; K76.89 Other specified diseases of liver; Z20.828 Contact with and (suspected) exposure to other viral communicable diseases; M25.511 Pain in right shoulder; M79.7 Fibromyalgia; Z88.1 Allergy status to other antibiotic agents; Z88.2 Allergy status to sulfonamides; Z88.8 Allergy status to other drugs, medicaments and biological substances; Z79.899 Other long term (current) drug therapy
CPT/HCPCS: 36415; 71046; 71260; 74170; 74175; 76705; 78227; 80053; 83690; 83735; 84100; 84145; 84443; 84703; 85025; 85610; 85652; 85730; 86038; 86140; 86225; 87635; 96361; 96374; 96375; 96376; A9537; C9113; J1885; J2270; J2405; J3480; J7512; Q9967; U0003